=== PATIENT | male | born 1995 | race African-American/Black ===

== ENCOUNTER 2016-05-29 14:56 | Emergency (ER) | payer SELFPAY ==
[2016-05-29 14:57] VITALS: BP 119/70; PULSE 70; RESP 12; TEMP 98; O2SAT 97
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
== END 2016-05-29 15:45 | disposition home or self-care (01) ==
LOC: NETRI 14:56
DX: Z48.02 Encounter for removal of sutures (principal)
CPT/HCPCS: 99282